=== PATIENT | male | born 1980 | race Caucasian/White ===

== ENCOUNTER 2016-06-20 15:44 | Emergency (ER) | payer SELFPAY ==
[~2016-06-20] VITALS: Ht 177.8 cm; Wt 90.7 kg
[~2016-06-20 15:44] MED LIST: DCS100C PO; HYDR1CAP2 PO; NAPR-243 PO; PENI500T PO
--- OUTSIDE RECORDS SUMMARY | 2016-06-20 15:49 | XMS REPORT | Continuity of Care Document ---
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 Role Phone NO, LOCAL PHYSICIAN PCP Unavailable Insurance Providers Payer Name Policy Number Subscriber Name Relationship Self Pay Jose Preciado 18 Self / Same As Patient Advance Directives Directive Response Recorded Date/Time Advance Directives No 11/23/14 11:48am Resuscitation Status Full Code 11/23/14 11:48am Problems Medical Problems Problem Onset Date Status Low back pain Unknown Active Hematochezia Unknown Active Medications Medication Dose Route Sig Days/Qty Instructions Order Date Discontinued Date Status Acetaminophen/Hydrocodone Bitart (Lorcet-Hd) 2 Each PO Q6HR PRN 20 Qty 10 12/28/12 Discontinued Penicillin V Potassium 1 Tab PO THREE TIMES A DAY 30 Qty 01/10/1009/06 Discontinued Naproxen 1 Each PO TWICE A DAY PRN PAIN 20 Qty FOR PAIN 11/23/14 Active Docusate Sodium 100 Mg PO TWICE A DAY 10 Qty 11/23/14 Active Social History Social History Problem Response Recorded Date/Time Alcohol Use Occasionally Uses 11/23/2014 11:48am Recreational Drug Use No 11/23/2014 11:48am Recent Foreign Travel No 11/23/2014 11:46am Recent Infectious Disease Exposure No 11/23/2014 11:46am Smoking Status Former Smoker 11/23/2014 11:48am Query Response Start Date Stop Date Smoking Status Former Smoker Hospital Discharge Instructions No hospital discharge instructions. Plan of Care No plan of care. Functional Status No functional status results. Allergies, Adverse Reactions, Alerts Allergen Type Severity Reaction Status Last Updated No Known Drug Allergies Active 01/10/10 Immunizations No immunization records. Vital Signs Acute Vital Signs Vital Response Date/Time Temperature (Fahrenheit) 97.6 degrees F (97.6 - 99.5) Temperature (Calculated Celsius) 36.18474 degrees C (36.4 - 37.5) Temperature Source Temporal Pulse Rate (adult) 72 bpm (60 - 90) Respiratory Rate 16 bpm (12 - 24) O2 Sat by Pulse Oximetry 97 % (88 - 100) Blood Pressure 142/78 mm Hg Pain Pain Intensity 5 Height (Feet) 5 feet Height (Inches) 10 inches Height (Calculated Centimeters) 177.219955 cm Weight (Pounds) 185 pounds Weight (Calculated Grams) 57315.666 gm Weight (Calculated Kilograms) 83.328737 kilograms Calculated BMI 26.54 Results Laboratory Results Test Name Result Units Flags Reference Collection Date/Time Result Date/ Time Comments White Blood Count 7.4 10^3/uL 4.3-11.0 11/23/2014 12:20pm 11/23/2014 12 :28pm Red Blood Count 4.64 10^6/uL 4.35-5.85 11/23/2014 12:pm 11/23/2014 12 :28pm Hemoglobin 14.6 G/DL 13.3-17.7 11/23/2014 12:pm 11/23/2014 12:28pm Hematocrit 42 % 40-54 11/23/2014 12:11/23/2014 12:28pm Mean Corpuscular Volume 91 FL 80-99 11/23/2014 12:11/23/2014 12: 28pm Mean Corpuscular Hemoglobin 32 PG 25-34 11/23/2014 12:pm 11/23/2014 12:28pm Mean Corpuscular Hemoglobin Concent 34 G/DL 32-36 11/23/2014 12:pm 12:28pm Red Cell Distribution Width 12.4 % 10.0-14.5 11/23/2014 12:20pm 2014 12:28pm Platelet Count 243 10^3/uL 130-400 11/23/2014 12:20pm 11/23/2014 12: 28pm Mean Platelet Volume 10.8 FL H 7.4-10.4 11/23/2014 12:20pm 11/23/2014 12: 28pm Neutrophils (%) (Auto) 64 % 42-75 11/23/2014 12:20pm 11/23/2014 12: 28pm Lymphocytes (%) (Auto) 24 % 12-44 11/23/2014 12:20pm 11/23/2014 12: 28pm Monocytes (%) (Auto) 9 % 0-12 11/23/2014 12:20pm 11/23/2014 12:28pm Eosinophils (%) (Auto) 3 % 0-10 11/23/2014 12:20pm 11/23/2014 12:28pm Basophils (%) (Auto) 0 % 0-10 11/23/2014 12:20pm 11/23/2014 12:28pm Neutrophils # (Auto) 4.7 X 10^3 1.8-7.8 11/23/2014 12:20pm 11/23/2014 12:28pm Lymphocytes # (Auto) 1.8 X 10^3 1.0-4.0 11/23/2014 12:20pm 11/23/2014 12:28pm Monocytes # (Auto) 0.7 X 10^3 0.0-1.0 11/23/2014 12:20pm 11/23/2014 12: 28pm Eosinophils # (Auto) 0.2 10^3/uL 0.0-0.3 11/23/2014 12:20pm 11/23/2014 12:28pm Basophils # (Auto) 0.0 10^3/uL 0.0-0.1 11/23/2014 12:20pm 11/23/2014 12 :28pm Erythrocyte Sedimentation Rate 4 MM/HR 0-15 11/23/2014 12:20pm 2014 1:09pm Urine Color YELLOW 11/23/2014 12:40pm 11/23/2014 1:08pm Urine Clarity CLEAR 11/23/2014 12:40pm 11/23/2014 1:08pm Urine pH 5 5-9 11/23/2014 12:40pm 11/23/2014 1:08pm Urine Specific Allen 1.020 1.016-1.022 11/23/2014 12:40pm 2014 1:08pm Urine Protein NEGATIVE NEGATIVE 11/23/2014 12:40pm 11/23/2014 1:08pm Urine Glucose (UA) NEGATIVE NEGATIVE 11/23/2014 12:40pm 11/23/2014 1: 08pm Urine RBC (Auto) 3+ * NEGATIVE 11/23/2014 12:40pm 11/23/2014 1:08pm Urine Ketones NEGATIVE NEGATIVE 11/23/2014 12:40pm 11/23/2014 1:08pm Urine Nitrite NEGATIVE NEGATIVE 11/23/2014 12:40pm 11/23/2014 1:08pm Urine Bilirubin NEGATIVE NEGATIVE 11/23/2014 12:40pm 11/23/2014 1: 08pm Urine Urobilinogen NORMAL MG/DL NORMAL 11/23/2014 12:40pm 11/23/2014 1: 08pm Urine Leukocyte Esterase NEGATIVE NEGATIVE 11/23/2014 12:40pm 2014 1:08pm Urine RBC 5-10 /HPF * 11/23/2014 12:40pm 11/23/2014 1:08pm Urine WBC NONE /HPF 11/23/2014 12:40pm 11/23/2014 1:08pm Urine Bacteria TRACE /HPF 11/23/2014 12:40pm 11/23/2014 1:08pm Urine Squamous Epithelial Cells NONE /HPF 11/23/2014 12:40pm 2014 1:08pm Urine Crystals NONE /LPF 11/23/2014 12:40pm 11/23/2014 1:08pm Urine Casts NONE /LPF 11/23/2014 12:40pm 11/23/2014 1:08pm Urine Mucus SMALL /LPF * 11/23/2014 12:40pm 11/23/2014 1:08pm Urine Other FEW SPERM /HPF * 11/23/2014 12:40pm 11/23/2014 1:08pm Urine Culture Indicated NO 11/23/2014 12:40pm 11/23/2014 1:08pm Sodium Level 143 MMOL/L 135-145 11/23/2014 12:20pm 11/23/2014 12:52pm Potassium Level 3.8 MMOL/L 3.6-5.0 11/23/2014 12:20pm 11/23/2014 12: 52pm Chloride Level 109 MMOL/L H 98-107 11/23/2014 12:20pm 11/23/2014 12:52pm Carbon Dioxide Level 26 MMOL/L 21-32 11/23/2014 12:20pm 11/23/2014 12: 52pm Blood Urea Nitrogen 11 MG/DL 7-18 11/23/2014 12:pm 11/23/2014 12: 52pm Creatinine 1.02 MG/DL 0.60-1.30 11/23/2014 12:20pm 11/23/2014 12:52pm BUN/Creatinine Ratio 11 11/23/2014 12:20pm 11/23/2014 12:52pm Estimat Glomerular Filtration Rate > 60 11/23/2014 12:2014 12:52pm GFR INTERPRETIVE DATA UNITS FOR ESTIMATED GFR (eGFR): mL/min/1.73 M2 REFERENCE RANGE FOR ESTIMATED GFR (eGFR) eGFR NORMAL eGFR >60 MODERATELY DECREASED eGFR 30-59 SEVERLY DECREASED eGFR 15-29 KIDNEY FAILURE <15 (OR DIALYSIS) Glucose Level 81 MG/DL 70-105 11/23/2014 12:20pm 11/23/2014 12:52pm Calcium Level 9.4 MG/DL 8.5-10.1 11/23/2014 12:11/23/2014 12:52pm Total Bilirubin 0.3 MG/DL 0.1-1.0 11/23/2014 12:pm 11/23/2014 12: 52pm Alkaline Phosphatase 68 U/L 40-136 11/23/2014 12:pm 11/23/2014 12: 52pm Aspartate Amino Transf (AST/SGOT) 14 U/L 5-34 11/23/2014 12:pm 2014 12:52pm Alanine Aminotransferase (ALT/SGPT) 18 U/L 0-55 11/23/2014 12: 12:52pm Total Protein 7.1 G/DL 6.4-8.2 11/23/2014 12:11/23/2014 12:52pm Albumin 4.2 G/DL 3.2-4.5 11/23/2014 12:pm 11/23/2014 12:52pm Procedures No known history of procedures. Encounters Encounter Location Date/Time Departed Emergency Room [facility] 11/23/14 11:27am Recent Diagnosis
[2016-06-20] MEDS ORDERED: RX-NITROGLYCERIN 0.4 MG TAB BTL 25'S SL ONE (16:26)
[2016-06-20] MEDS ORDERED: ASPIRIN 81 MG CHEW (CHILDREN'S ASA) PO ONE (16:30)
[2016-06-20] MEDS ORDERED: NITROGLYCERIN SUBLINGUAL 0.4 MG TAB (NITROSTAT) SL PRN (16:30)
[2016-06-20 16:35] LABS: BASOPHILS % (AUTO) 0 % (0-10); EOSINOPHILS # (AUTO) 0.1 10^3/uL (0.0-0.3); EOSINOPHILS % (AUTO) 1 % (0-10); LYMPHOCYTES # (AUTO) 2.1 X 10^3 (1.0-4.0); LYMPHOCYTES % (AUTO) 17 % (12-44); MEAN CORPUSCULAR HEMOGLOBIN 32 PG (25-34); MEAN CORPUSCULAR HGB CONC 35 G/DL (32-36); MEAN CORPUSCULAR VOLUME 89 FL (80-99); MEAN PLATELET VOLUME 10.9 FL (7.4-10.4); MONOCYTES # (AUTO) 0.9 X 10^3 (0.0-1.0); MONOCYTES % (AUTO) 8 % (0-12); NEUTROPHILS # (AUTO) 8.7 X 10^3 (1.8-7.8); NEUTROPHILS % (AUTO) 74 % (42-75); PLATELET COUNT 249 10^3/uL (130-400); RED CELL DISTRIBUTION WIDTH 12.2 % (10.0-14.5); WHITE BLOOD COUNT 11.8 10^3/uL (4.3-11.0)
--- NOTE | 2016-06-20 16:36 | Diagnostic Imaging Report ---
EXAM: CHEST PA/LAT (2 VIEW) INDICATION: Dyspnea. COMPARISON: None. FINDINGS: Normal heart size and pulmonary vascularity. No focal pulmonary opacity, pleural effusion or pneumothorax. Degenerative changes in the spine. IMPRESSION: No acute cardiopulmonary findings. Dictated by: Dictated on workstation # [id number]
--- NOTE | 2016-06-20 16:37 | ED Cardiac General ---
History of Present Illness General Chief Complaint: General Problems/Pain Stated Complaint: SOA,DIZZINESS Nursing Triage Note: PT C/O DYSPNEA SINCE 0200 THIS AM. HE STATES THIS SAME THING HAPPENED 3 DAYS AGO BUT WENT AWAY ON ITS OWN. HE DENIES HAVING COUGH/CONGESTION/FEVER OR PALPITATIONS, BUT DOES C/O BEING "WOOZY". Source: patient History of Present Illness Time seen by provider: 16:06 Initial Comments PT STATES HE WOKE UP THIS AM AT 0200 WITH SHORTNESS OF BREATH, WAS UP FOR 30 MINUTES WITH IT AND ABLE TO GET BACK TO ASLEEP, BUT THEN IT WOKE HIM UP AGAIN AT 0400 AND HAS PERSISTED. ALSO HAS CHEST DISCOMFORT--TIGHTNESS/HEAVINESS--RATES 4-5/10 SYMPTOMS WORSE WITH EXERTION AND WITH LAYING FLAT IMPROVED WITH SITTING UP HAS BEEN SLIGHTLY DIZZY AND NAUSEATED NO SWEATS NO PALPITATIONS NO SWELLING IN LEGS/ FEET OR PAIN IN CALVES. NO RECENT TRAVEL/PROLONGED SITTING NO COUGH/CONGESTION, FEVER OR RECENT ILLNESS PCP: NONE Allergies and Home Medications Allergies Coded Allergies: No Known Drug Allergies (Unverified , 01/10/10) Home Medications Docusate Sodium 100 Mg Cap #10 100 MG PO BID Prescribed by: SYDNEY CHAMBERLAIN on 11/23/14 1323 Naproxen 500 Mg Tablet #20 1 EACH PO BID PRN PRN PAIN FOR PAIN Prescribed by: SYDNEY CHAMBERLAIN on 11/23/14 1323 Review of Systems Constitutional: no symptoms reported EENTM: No Symptoms Reported Respiratory: See HPI Orthopnea SOA With ExertionDenies Wheezing Cardiovascular: See HPI Chest PainDenies Edema, Denies Irregular Heart Rate, LightheadednessDenies Palpitations, Denies Syncope Gastrointestinal: See HPIDenies Abdominal Pain, NauseaDenies Vomiting Genitourinary: No Symptoms Reported Musculoskeletal: no symptoms reported Skin: no symptoms reported Psychiatric/Neurological: No Symptoms Reported Endocrine: No Symptoms Reported Hematologic/Lymphatic: No Symptoms Reported Past Swmfawo-Ldlxoo-Tvqhty Hx Patient Social History Alcohol Use: Occasionally Uses Recreational Drug Use: No (EXPERIMENTED TEEN) Smoking Status: Current Everyday Smoker (1 PPD, NOW VAPE CIGARETTES) Type Used: Cigarettes, Electronic/Vapor Recent Foreign Travel: No Contact w/Someone Who Travel: No Recent Infectious Disease Expo: No Recent Hopitalizations: No Physical Abuse Screen: No Sexual Abuse: No Seasonal Allergies Seasonal Allergies: No Surgeries HX Surgeries: Yes (CORRECTION OF TESTICULAR TORSION) Surgeries: Testicular Respiratory Hx Respiratory Disorders: No Cardiovascular Hx Cardiac Disorders: No Neurological Hx Neurological Disorders: No Genitourinary Hx Genitourinary Disorders: Yes (TESTICULAR TORSION CORRECTED) Gastrointestinal Hx Gastrointestinal Disorders: No Musculoskeletal Hx Musculoskeletal Disorders: No Endocrine Hx Endocrine Disorders: No HEENT HX ENT Disorders: No Cancer Hx Cancer: No Psychosocial Hx Psychiatric Problems: No Integumentary HX Skin/Integumentary Disorder: No Blood Transfusions Hx Blood Disorders: No Physical Exam Vital Signs Vital Sign - Last 12Hours 06/20/16 15:54 Temp 98.7 Pulse 81 Resp 18 B/P 159/91 Pulse Ox 98 O2 Delivery Room Air Capillary Refill : Less Than 3 Seconds General Appearance: No Apparent Distress WD/WN Other (DOES NOT APPEAR TO BE IN ANY DISCOMFORT OR DYSPNEA ) HEENT: PERRL/EOMI Neck: Full Range of Motion Normal Inspection Non Tender SuppleNo Carotid Bruit , No JVD Respiratory: Chest Non Tender Normal Breath Sounds No Accessory Muscle Use No Respiratory Distress Cardiovascular: Regular Rate, Rhythm No Edema No JVD No Murmur Normal Peripheral Pulses Gastrointestinal: Normal Bowel Sounds No Organomegaly No Pulsatile Mass Non Tender Soft Extremity: Normal Capillary Refill Normal Inspection Normal Range of Motion Non Tender No Calf Tenderness No Pedal Edema Neurologic/Psychiatric: Alert Oriented x3 No Motor/Sensory Deficits Normal Mood/Affect grape pruner II-XII Norm as Tested Skin: Normal Color Warm/Dry Progress/Results/Core Measures Results/Orders Lab Results Laboratory Tests Test 06/20/16 16:01 Range/Units Activated Partial Thromboplast Time 31 24-35 SEC Alanine Aminotransferase (ALT/SGPT) 19 0-55 U/L Albumin 4.2 3.2-4.5 G/DL Alkaline Phosphatase 70 40-136 U/L Anion Gap 9 5-14 MMOL/L Aspartate Amino Transf (AST/SGOT) 14 5-34 U/L B-Type Natriuretic Peptide < 10.0 <100.0 PG/ML BUN/Creatinine Ratio 12 Basophils # (Auto) 0.0 0.0-0.1 10^3/uL Basophils (%) (Auto) 0 0-10 % Blood Urea Nitrogen 12 7-18 MG/DL Calcium Level 9.0 8.5-10.1 MG/DL Carbon Dioxide Level 22 21-32 MMOL/L Chloride Level 107 98-107 MMOL/L Creatine Kinase MB 1.6 <6.6 NG/ML Creatinine 1.00 0.60-1.30 MG/DL D-Dimer < 0.27 0.00-0.49 UG/ML Eosinophils # (Auto) 0.1 0.0-0.3 10^3/uL Eosinophils (%) (Auto) 1 0-10 % Estimat Glomerular Filtration Rate > 60 Glucose Level 99 70-105 MG/DL Hematocrit 42 40-54 % Hemoglobin 14.8 13.3-17.7 G/DL INR Comment 1.0 0.8-1.4 Lymphocytes # (Auto) 2.1 1.0-4.0 X 10^3 Lymphocytes (%) (Auto) 17 12-44 % Magnesium Level 2.1 1.8-2.4 MG/DL Mean Corpuscular Hemoglobin 32 25-34 PG Mean Corpuscular Hemoglobin Concent 35 32-36 G/DL Mean Corpuscular Volume 89 80-99 FL Mean Platelet Volume 10.9 H 7.4-10.4 FL Monocytes # (Auto) 0.9 0.0-1.0 X 10^3 Monocytes (%) (Auto) 8 0-12 % Neutrophils # (Auto) 8.7 H 1.8-7.8 X 10^3 Neutrophils (%) (Auto) 74 42-75 % Platelet Count 249 130-400 10^3/uL Potassium Level 3.9 3.6-5.0 MMOL/L Prothrombin Time 13.0 12.2-14.7 SEC Red Blood Count 4.70 4.35-5.85 10^6/uL Red Cell Distribution Width 12.2 10.0-14.5 % Sodium Level 138 135-145 MMOL/L TSH [place] Testing 1.30 0.35-4.94 UIU/ML Total Bilirubin 0.2 0.1-1.0 MG/DL Total Creatine Kinase 134 30-200 U/L Total Protein 7.0 6.4-8.2 G/DL Troponin I < 0.30 <0.30 NG/ML White Blood Count 11.8 H 4.3-11.0 10^3/uL My Orders Orders-SUKUMAR DURÁN DO Saline Lock/Iv-Start (06/20/16 16:10) Ekg Tracing (06/20/16 16:10) Monitor-Rhythm Ecg Trace Only (06/20/16 16:10) BNP (06/20/16 16:10) Cbc With Automated Diff (06/20/16 16:10) Comprehensive Metabolic Panel (06/20/16 16:10) Creatine Kinase (06/20/16 16:10) Creatine Kinase Mb (06/20/16 16:10) Magnesium (06/20/16 16:10) Protime With Inr (06/20/16 16:10) Partial Thromboplastin Time (06/20/16 16:10) Thyroid Analyzer (06/20/16 16:10) Troponin I (06/20/16 16:10) Chest Pa/Lat (2 View) (06/20/16 16:10) Aspirin Chewable Tablet (Baby Aspirin Ch (06/20/16 16:30) Nitroglycerin Sublingual (Nitrostat Sub (06/20/16 16:30) Fibrin Degradation Products (06/20/16 16:19) Rx-Nitroglycerin Sl Tabs (Rx-Nitrostat S (06/20/16 16:26) Ct Angio Chest W (06/20/16 17:11) Iohexol Injection (Omnipaque 350 Mg/Ml 1 (06/20/16 17:15) Ns (Ivpb) (Sodium Chloride 0.9% Ivpb Bag (06/20/16 17:15) Medications Given in ED Current Medications Medications Dose Ordered Sig/Jaycob Route Start Time Stop Time Status Last Admin Dose Admin Aspirin 324 mg ONCE ONCE PO 06/20/16 16:30 06/20/16 16:31 DC 06/20/16 16:36 324 MG Iohexol 150 ml ONCE ONCE IV 06/20/16 17:15 06/20/16 17:16 DC 06/20/16 17:26 125 ML Nitroglycerin 0.4 mg STK-MED ONCE SL 06/20/16 16:26 06/20/16 16:34 DC 06/20/16 16:36 0.4 MG Sodium Chloride 100 ml ONCE ONCE IV 06/20/16 17:15 06/20/16 17:16 DC 06/20/16 17:26 80 ML Vital Signs/I&O Vital Sign - Last 12Hours 06/20/16 15:54 Temp 98.7 Pulse 81 Resp 18 B/P 159/91 Pulse Ox 98 O2 Delivery Room Air Blood Pressure Mean: 113 Progress Note : Progress Note NO OBJECTIVE EVIDENCE OF DYSPNEA OR DISCOMFORT DURING ER STAY ECG Initial ECG Impression Time: 16:15 Initial ECG Rate: 77 Initial ECG Rhythm: Normal Sinus Initial ECG Impression: Normal Initial ECG Comparisson: No Previous ECG Available Diagnostic Imaging Comments CXR--NO ACUTE PROCESS, PER RADIOLOGIST REPORT @ 1648 CT CHEST ANGIOGRAM--NO ACUTE PROCESS, PER RADIOLOGIST REPORT @ 1752 Reviewed: Reviewed by Me Departure Impression Impression: Primary Impression: SUBJECTIVE DYSPNEA Disposition: 01 HOME, SELF-CARE Condition: Stable Departure-Patient Inst. Referrals: NO,LOCAL PHYSICIAN (PCP/Family) Primary Care Physician Patient Instructions: Shortness of Breath (Dyspnea) (DC) Add. Discharge Instructions: FOLLOW UP WITH DR. OF CHOICE THIS WEEK FOR FURTHER CARE RETURN TO ER IF SYMPTOMS WORSEN All discharge instructions reviewed with patient and/or family. Voiced understanding. SUKUMAR DURÁN DO Jun 20, 2016 16:37
[2016-06-20 16:54] LABS: ALANINE AMINOTRANSFERASE 19 U/L (0-55); ALBUMIN 4.2 G/DL (3.2-4.5); ANION GAP 9 MMOL/L (5-14); ASPARTATE AMINO TRANSFERASE 14 U/L (5-34); BILIRUBIN,TOTAL 0.2 MG/DL (0.1-1.0); BLOOD UREA NITROGEN 12 MG/DL (7-18); BUN/CREATININE RATIO 12; CARBON DIOXIDE 22 MMOL/L (21-32); CHLORIDE 107 MMOL/L (98-107); CREATINE KINASE 134 U/L (30-200); GFR ESTIMATED > 60; GLUCOSE 99 MG/DL (70-105); MAGNESIUM 2.1 MG/DL (1.8-2.4); POTASSIUM 3.9 MMOL/L (3.6-5.0); SODIUM 138 MMOL/L (135-145)
[2016-06-20 17:04] LABS: PARTIAL THROMBOPLASTIN TIME 31 SEC (24-35)
[2016-06-20 17:13] LABS: TROPONIN I < 0.30 NG/ML (<0.30)
[2016-06-20] MEDS ORDERED: NS 100 ML (IVPB) BAG IV ONE (17:15)
[2016-06-20] MEDS ORDERED: IOHEXOL 350 MG/ML 150 ML (OMNIPAQUE 350) VIAL IV ONE (17:15)
--- NOTE | 2016-06-20 17:48 | Diagnostic Imaging Report ---
INDICATION: Shortness of breath and fullness in chest. TECHNIQUE: CTA chest obtained with axial slices with IV contrast bolus and MIP reconstructions. FINDINGS: The pulmonary parenchymal vessels appear well opacified with no CT evidence of pulmonary emboli. There is no evidence of aortic dissection or aneurysm. Great vessel origins appear unremarkable. There is no mediastinal or hilar adenopathy. There is no axillary adenopathy. There is no pleural or pericardial fluid. Visualized portions of the upper abdomen were unremarkable. Lung parenchymal windows demonstrate some motion artifact but no evidence of infiltrate or mass. There is some mild dependent atelectatic change in both lung bases. IMPRESSION: Essentially negative CTA of the chest. No evidence of pulmonary emboli or aortic dissection. Mild dependent atelectatic changes in both lung bases. No pleural fluid or consolidation. Dictated by: Dictated on workstation # [id number]
[2016-06-20 18:02] VITALS: BP 119/87
== END 2016-06-20 18:03 | disposition home or self-care (01) ==
LOC: EDUNIT# 15:44 → ER 15:46
DX: R06.00 Dyspnea, unspecified (principal); R05 Cough; R42 Dizziness and giddiness; F17.210 Nicotine dependence, cigarettes, uncomplicated
CPT/HCPCS: 36415; 71020; 71275; 80053; 82550; 82553; 83735; 83880; 84443; 84484; 85025; 85379; 85610; 85730; 93005; 93041

== ENCOUNTER 2021-09-03 04:13 | Observation (INO) | payer BC ==
[~2021-09-03] VITALS: Ht 177.8 cm; Wt 81.6 kg
[2021-09-03] MEDS ORDERED: ASPIRIN 81 MG CHEW (CHILDREN'S ASA) PO ONE (04:30)
[2021-09-03] MEDS ORDERED: NITROGLYCERIN 0.4 MG SL TABS BTL 25'S SL PRN (04:30)
[2021-09-03 04:36] LABS: BASOPHILS # (AUTO) 0.1 10^3/uL (0.0-0.1); BASOPHILS % (AUTO) 1 % (0-10); EOSINOPHILS # (AUTO) 0.4 10^3/uL (0.0-0.3); EOSINOPHILS % (AUTO) 3 % (0-10); HEMATOCRIT 43 % (40-54); HEMOGLOBIN 14.6 g/dL (13.3-17.7); LYMPHOCYTES # (AUTO) 3.7 10^3/uL (1.0-4.0); LYMPHOCYTES % (AUTO) 23 % (12-44); MEAN CORPUSCULAR HEMOGLOBIN 32 pg (25-34); MEAN CORPUSCULAR HGB CONC 34 g/dL (32-36); MEAN CORPUSCULAR VOLUME 93 fL (80-99); MEAN PLATELET VOLUME 10.5 fL (9.0-12.2); MONOCYTES # (AUTO) 1.2 10^3/uL (0.0-1.0); MONOCYTES % (AUTO) 7 % (0-12); NEUTROPHILS # (AUTO) 10.6 10^3/uL (1.8-7.8); NEUTROPHILS % (AUTO) 66 % (42-75); PLATELET COUNT 291 10^3/uL (130-400)
--- NOTE | 2021-09-03 04:38 | ED Chest Pain ---
General Chief Complaint: Chest Pain Stated Complaint: CHEST PAIN;TROUBLE BREATHING Nursing Triage Note: Pt arrives via POV from home for c/o non-radiating midline chest pain; onset 0900 09/02/21. Pt denies cardiac hx, states pain increases when taking a deep breath. Source: patient History of Present Illness Date Seen by Provider: Sep 03, 2021 Time Seen by Provider: 04:25 Initial Comments PT ARRIVES VIA POV FROM HOME C/O MID CHEST PAIN THAT WOKE HIM UP AT 0900 THIS MORNING PAIN HAS PROGRESSIVELY GOTTEN WORSE ALL DAY, AND TRIED TO SLEEP TONIGHT AND IT WOKE HIM UP AGAIN JUST PRIOR TO ARRIVAL RATES PAIN 8-02/03 NO RADIATION OF PAIN PAIN IS WORSE WITH ACTIVITY, MOVEMENT AND BREATHING + SHORTNESS OF BREATH AND PAIN WITH BREATHING + SWEATS EARLIER TODAY AND AGAIN NOW + NAUSEA, NO VOMITING NO SWELLING IN LEGS/ FEET OR PAIN IN CALVES NO FEVER OR RECENT ILLNESS, NO COUGH OR URI SYMPTOMS TOOK TYLENOL WITHOUT RELIEF NO HISTORY OF SIMILAR PT SMOKED 1 PPD, NOW VAPES NICOTINE PT'S FATHER HAD MA AT AGE 42 AND HIS BROTHERS HAD MA'S AT 46 AND 47. PT HAS NOT SEEN A DR IN MANY YEARS PT HAS NOT HAD COVID-19 VACCINE PCP: NONE Allergies and Home Medications Allergies Coded Allergies: No Known Drug Allergies (Unverified , 01/10/10) Patient Home Medication List Home Medication List Reviewed: Yes Docusate Sodium (Colace) 100 Mg Cap, 100 MG PO BID Prescribed by: SYDNEY CHAMBERLAIN on 11/23/14 1323 Naproxen (Naprosyn) 500 Mg Tablet, 1 EACH PO BID PRN for PAIN Prescribed by: SYDNEY CHAMBERLAIN on 11/23/14 1323 Review of Systems Review of Systems Constitutional: see HPI, diaphoresis EENTM: No Symptoms Reported Respiratory: See HPI; Denies Cough; Shortness of Air Cardiovascular: See HPI, Chest Pain; Denies Edema, Denies Irregular Heart Rate, Denies Lightheadedness, Denies Palpitations, Denies Syncope Gastrointestinal: See HPI; Denies Abdominal Pain; Nausea; Denies Vomiting Genitourinary: No Symptoms Reported Musculoskeletal: no symptoms reported Skin: no symptoms reported Psychiatric/Neurological: No Symptoms Reported Endocrine: No Symptoms Reported Hematologic/Lymphatic: No Symptoms Reported Past Sqgjgfc-Slusrq-Pgzltf Hx Patient Social History Tobacco Use?: Yes (SMOKED 1PPD, NOW VAPES) Tobacco type used: Cigarettes Smoking Status: Former Smoker Use of E-Cig and/or Vaping dev: Yes E-Cig or Vaping type used: Nicotine Use of E-Cig and/or Vaping Aakash: Current Everyday User Substance use?: No Additional substance use comme: EXPERIMENTED A TEEN Alcohol Use?: Yes Alcohol Frequency: Once in a while Seasonal Allergies Seasonal Allergies: No Past Medical History Surgeries: Yes (CORRECTION OF TESTICULAR TORSION) Testicular Respiratory: No Cardiac: No Neurological: No Genitourinary: Yes (TESTICULAR TORSION WITH CORRECTIVE SURGERY) Gastrointestinal: No Musculoskeletal: No Endocrine: No HEENT: No Cancer: No Psychosocial: No Integumentary: No Blood Disorders: No Physical Exam Vital Signs Vital Signs - First Documented Capillary Refill : Less Than 3 Seconds Height, Weight, BMI Height: 5'10" Weight: 200lbs. oz. 90.833138jk; 25.00 BMI Method:Stated General Appearance: No Apparent Distress, WD/WN, Other (SOMEWHAT LETHARGIC, LOOKS UNCOMFORTABLE, PALE AND MILDY DIAPHORETIC) Neck: Normal Inspection Respiratory: Chest Non Tender, Normal Breath Sounds, No Accessory Muscle Use, No Respiratory Distress Cardiovascular: Regular Rate, Rhythm, No Edema, No JVD, No Murmur, Normal Peripheral Pulses Gastrointestinal: Non Tender, Soft Extremity: Normal Capillary Refill, Normal Inspection, Normal Range of Motion, Non Tender, No Calf Tenderness, No Pedal Edema Neurologic/Psychiatric: Alert, Oriented x3, No Motor/Sensory Deficits, environmental engineer II- XII Norm as Tested Skin: Diaphoresis, Pallor Progress/Results/Core Measures Results/Orders Lab Results Laboratory Tests Test 09/03/21 04:25 Range/Units White Blood Count 16.0 H 4.3-11.0 10^3/uL Red Blood Count 4.60 4.30-5.52 10^6/uL Hemoglobin 14.6 13.3-17.7 g/dL Hematocrit 43 40-54 % Mean Corpuscular Volume 93 80-99 fL Mean Corpuscular Hemoglobin 32 25-34 pg Mean Corpuscular Hemoglobin Concent 34 32-36 g/dL Red Cell Distribution Width 11.9 10.0-14.5 % Platelet Count 291 130-400 10^3/uL Mean Platelet Volume 10.5 9.0-12.2 fL Immature Granulocyte % (Auto) 0 % Neutrophils (%) (Auto) 66 42-75 % Lymphocytes (%) (Auto) 23 12-44 % Monocytes (%) (Auto) 7 0-12 % Eosinophils (%) (Auto) 3 0-10 % Basophils (%) (Auto) 1 0-10 % Neutrophils # (Auto) 10.6 H 1.8-7.8 10^3/uL Lymphocytes # (Auto) 3.7 1.0-4.0 10^3/uL Monocytes # (Auto) 1.2 H 0.0-1.0 10^3/uL Eosinophils # (Auto) 0.4 H 0.0-0.3 10^3/uL Basophils # (Auto) 0.1 0.0-0.1 10^3/uL Immature Granulocyte # (Auto) 0.1 0.0-0.1 10^3/uL Sodium Level 139 135-145 MMOL/L Potassium Level 3.6 3.6-5.0 MMOL/L Chloride Level 103 98-107 MMOL/L Carbon Dioxide Level 22 21-32 MMOL/L Anion Gap 14 5-14 MMOL/L Blood Urea Nitrogen 13 7-18 MG/DL Creatinine 1.02 0.60-1.30 MG/DL Estimat Glomerular Filtration Rate 95 BUN/Creatinine Ratio 13 Glucose Level 125 H 70-105 MG/DL Calcium Level 8.9 8.5-10.1 MG/DL Corrected Calcium 8.8 8.5-10.1 MG/DL Magnesium Level 1.8 1.6-2.4 MG/DL Total Bilirubin 0.3 0.1-1.0 MG/DL Aspartate Amino Transf (AST/SGOT) 16 5-34 U/L Alanine Aminotransferase (ALT/SGPT) 15 0-55 U/L Alkaline Phosphatase 69 40-136 U/L Total Creatine Kinase 121 30-200 U/L Creatine Kinase MB 1.5 <6.6 NG/ML Myoglobin 33.4 10.0-92.0 NG/ML Troponin I < 0.028 <0.028 NG/ML Total Protein 7.0 6.4-8.2 GM/DL Albumin 4.1 3.2-4.5 GM/DL Amylase Level 61 25-125 U/L Lipase 17 8-78 U/L My Toby Luis - SUKUMAR DURÁN DO Cbc With Automated Diff (09/03/21 04:25) Magnesium (09/03/21 04:25) Chest 1 View, Ap/Pa Only (09/03/21 04:25) Ekg Tracing (09/03/21 04:25) Comprehensive Metabolic Panel (09/03/21 04:25) Myoglobin Serum (09/03/21 04:25) Protime With Inr (09/03/21 04:25) Partial Thromboplastin Time (09/03/21 04:25) O2 (09/03/21 04:25) Monitor-Rhythm Ecg Trace Only (09/03/21 04:25) Ed Iv/Invasive Line Start (09/03/21 04:25) Creatine Kinase (09/03/21 04:25) Creatine Kinase Mb (09/03/21 04:25) Lipase (09/03/21 04:25) Amylase (09/03/21 04:25) Bnp Douglas (09/03/21 04:25) Nitroglycerin 0.4 Mg Btl 25's (Nitrostat (09/03/21 04:30) Aspirin Chewable Tablet (Baby Aspirin Ch (09/03/21 04:30) Fibrin Degradation Products (09/03/21 04:25) Troponin I Douglas (09/03/21 04:25) Ed Iv/Invasive Line Start (09/03/21 04:33) Ns Iv 1000 Ml (Sodium Chloride 0.9%) (09/03/21 04:45) Manual Differential (09/03/21 04:25) Covid 19 Inhouse Test (09/03/21 04:49) Influenza A And B By Pcr (09/03/21 04:49) Isolation Central Supply Req (09/03/21 04:49) Medications Given in ED Current Medications Medications Dose Ordered Sig/Jaycob Route Start Time Stop Time Status Last Admin Dose Admin Aspirin 324 mg ONCE ONCE PO 09/03/21 04:30 09/03/21 04:31 DC 09/03/21 04:39 324 MG Nitroglycerin 0.4 mg UD PRN SL 09/03/21 04:30 09/03/21 04:39 0.4 MG Vital Signs/I&O 09/03/21 09/03/21 04:19 04:19 Temp 36.8 Pulse 84 Resp 18 B/P (MAP) 133/93 (106) Pulse Ox 97 97 O2 Delivery Room Air Room Air Blood Pressure Mean: 106 Progress Progress Note : Progress Note GIVEN ASPIRIN AND NTG X 1--NO SIGNIFICANT RELIEF NO DETERIORATION IN PT'S CONDITION DURING ER STAY Initial ECG Impression Date: Sep 03, 2021 Initial ECG Impression Time: 04:23 Initial ECG Rate: 87 Initial ECG Rhythm: Normal Sinus Initial ECG Impression: Acute MA Comment ST ELEVATION ANTERIOR AND LATERALLY Diagnostic Imaging Comments CXR--NO ACUTE PROCESS, PENDING RADIOLOGIST REVIEW Reviewed: Reviewed by Me Departure Communication (Admissions) 0426--SPOKE WITH TABLET REPAIR, TESTING EKG TO DR. GA 0430--SPOKE WITH DR. GA. HE ADVISES TO CALL IN TESTER ARMATURE OR FIELDS TEAM. TABLET REPAIR NOTIFIED. 0503--DR. GA HERE TO SEE PT. 0515--TESTER ARMATURE OR FIELDS TEAM HAVE TAKEN THE PT TO TESTER ARMATURE OR FIELDS. Impression Primary Impression: STEMI (ST elevation myocardial infarction) Disposition: 09 ADMITTED INPATIENT (TO TESTER ARMATURE OR FIELDS) Condition: Stable Admissions Decision to Admit Reason: Admit from ER (General) (TO TESTER ARMATURE OR FIELDS) Decision to Admit/Date: Sep 03, 2021 Time/Decision to Admit Time: 04:30 Departure-Patient Inst. Referrals: NO,LOCAL PHYSICIAN (PCP/Family) Primary Care Physician SUKUMAR DURÁN DO Sep 03, 2021 04:38
[2021-09-03 04:43] LABS: ALBUMIN 4.1 GM/DL (3.2-4.5); CHLORIDE 103 MMOL/L (98-107); POTASSIUM 3.6 MMOL/L (3.6-5.0); SODIUM 139 MMOL/L (135-145)
[2021-09-03 04:44] LABS: AMYLASE 61 U/L (25-125)
[2021-09-03 04:45] LABS: CALCIUM 8.9 MG/DL (8.5-10.1)
[2021-09-03] MEDS ORDERED: NS IV 1000 ML 1,000 ML IV SCH ×2 (04:45→05:45)
[2021-09-03 04:46] LABS: GLUCOSE 125 MG/DL (70-105)
[2021-09-03 04:47] LABS: CARBON DIOXIDE 22 MMOL/L (21-32)
[2021-09-03 04:48] LABS: BILIRUBIN,TOTAL 0.3 MG/DL (0.1-1.0)
[2021-09-03 04:49] LABS: ALKALINE PHOSPHATASE 69 U/L (40-136); CREATININE SERUM 1.02 MG/DL (0.60-1.30); GFR ESTIMATED 95
[2021-09-03 04:50] LABS: BUN/CREATININE RATIO 13
[2021-09-03 04:52] LABS: ALANINE AMINOTRANSFERASE 15 U/L (0-55); MAGNESIUM 1.8 MG/DL (1.6-2.4)
[2021-09-03 04:53] LABS: CREATINE KINASE 121 U/L (30-200); LIPASE 17 U/L (8-78)
[2021-09-03 05:00] LABS: CREATINE KINASE MB 1.5 NG/ML (<6.6)
[2021-09-03] MEDS ORDERED: MIDAZOLAM 5 MG/5 ML (VERSED) VIAL ONE (05:06)
[2021-09-03] MEDS ORDERED: fentaNYL INJ 100 MCG/2 ML AMP ONE (05:06)
[2021-09-03] MEDS ORDERED: LIDOCAINE 2% 20 ML (XYLOCAINE) VIAL ONE (05:07)
[2021-09-03] MEDS ORDERED: NITRO DRIP 25000 MCG/D5W 0 ML IV ONE (05:07)
[2021-09-03] MEDS ORDERED: NS IV 1000 ML 0 ML ONE (05:07)
[2021-09-03] MEDS ORDERED: HEParin 1000 UNIT/ML (10ML VIAL) FOR BOLUS ONE (05:07)
[2021-09-03] MEDS ORDERED: HEParin (CATH LAB) 2,000 ML IV ONE (05:08)
--- NOTE | 2021-09-03 05:11 | Cardiology History & Physical ---
HPI-Cardiology Cardiology Consultation Date of Consultation 09/03/21 Date of Admission Time Seen by Provider: 05:11 Indication: Chest pain HPI 41 years old gentleman with no significant past medical history, strong family history of heart disease, started to have chest pain yesterday morning initially the pain relieved and came back last night with dull achiness in the retroster nal area associated with shortness of breath and diaphoresis, EKG has minimal ST elevation in lead V2. Chest pain relieved by nitroglycerin. On my evaluation he was still having mild discomfort in his chest. We decided to proceed with cardiac catheterization PMH-Cardiology Seasonal Allergies Seasonal Allergies: No Surgeries Yes (CORRECTION OF TESTICULAR TORSION) Respiratory No Cardiovascular No Neurological No Genitourinary Yes (TESTICULAR TORSION WITH CORRECTIVE SURGERY) Gastrointestinal No Musculoskeletal No Endocrine No HEENT No Cancer No Psychosocial No Integumentary No Blood Transfusions No Social History Patient Social History Marrital Status: Smoking: Current every day smoker Have you traveled recently?: No Alcohol Use?: Yes Family Hx Other Strong family history of heart disease with multiple heart members with heart attack at age 40 ROS-Cardiology Review of Systems General: No Chills, No Night Sweats, No Fatigue, No Malaise, No Appetite HEENT: No Head Aches, No Visual Changes, No Eye Pain, No Ear Pain, No Dysphasia, No Sinus Congestion, No Post Nasal Drip, No Sore Throat Pulmonary: Dyspnea; No Cough, No Pleuritic Chest Pain Cardiovascular: Chest Pain; No: Palpitations, Orthopnea, Paroxysmal Noc. Dyspnea, Edema, Lt Headedness Gastrointestinal: No: Nausea, Vomiting, Abdominal Pain, Diarrhea, Constipation, Melena, Hematochezia Genitourinary: No Dysuria, No Frequency, No Incontinence, No Hematuria, No Retention Musculoskeletal: No: neck pain, shoulder pain, arm pain, back pain, hand pain, leg pain, foot pain Neurological: No: Weakness, Numbness, Incoordination, Change in speech, Confus ion, Seizures Home Medications & Allergies Allergies: Coded Allergies: No Known Drug Allergies (Unverified , 01/10/10) Home Medication List Reviewed: Yes Exam-Cardiology Vital Signs Vital Signs Date Time Temp Pulse Resp B/P (MAP) Pulse Ox O2 Delivery O2 Flow Rate FiO2 09/03/21 04:19 97 Room Air 09/03/21 04:19 36.8 84 18 133/93 (106) Exam General Appearance: Alert, Oriented X3, Cooperative, No Acute Distress HEENT: Atraumatic, PERRLA Respiratory: Clear to Auscultation, Normal Air Movement Cardiovascular: Regular Rate, Normal S1, Normal S2, No Murmurs Abdominal: Normal Bowel Sounds, Soft, No Tenderness, No Hepatosplenomegaly, No Masses Extremities: No Clubbing, No Cyanosis, No Edema, Normal Pulses, No Tenderness/Swelling Skin: No Rashes, No Breakdown, No Significant Lesion Neuro: Normal Gait, Normal Speech, Strength at 5/5 X4 Ext, Normal Tone, Sensation Intact Psych/Mental Status: Mental Status NL, Mood NL Results Labs Labs Laboratory Tests 09/03/21 04:25: White Blood Count 16.0H, Red Blood Count 4.60, Hemoglobin 14.6, Hematocrit 43, Mean Corpuscular Volume 93, Mean Corpuscular Hemoglobin 32, Mean Corpuscular Hemoglobin Concent 34, Red Cell Distribution Width 11.9, Platelet Count 291, Mean Platelet Volume 10.5, Immature Granulocyte % (Auto) 0, Neutrophils (%) (Auto) 66, Lymphocytes (%) (Auto) 23, Monocytes (%) (Auto) 7, Eosinophils (%) (Auto) 3, Basophils (%) (Auto) 1, Neutrophils # (Auto) 10.6H, Lymphocytes # (Auto) 3.7, Monocytes # (Auto) 1.2H, Eosinophils # (Auto) 0.4H, Basophils # (Auto) 0.1, Immature Granulocyte # (Auto) 0.1, Neutrophils % (Manual) 68, Lymphocytes % (Manual) 20, Monocytes % (Manual) 8, Eosinophils % (Manual) 4, Blood Morphology Comment NORMAL, Prothrombin Time 12.7, INR Comment 0.9, Activated Partial Thromboplast Time 29, D-Dimer 0.20, Sodium Level 139, Potassium Level 3.6, Chloride Level 103, Carbon Dioxide Level 22, Anion Gap 14, Blood Urea Nitrogen 13, Creatinine 1.02, Estimat Glomerular Filtration Rate 95, BUN/Creatinine Ratio 13, Glucose Level 125H, Calcium Level 8.9, Corrected Calcium 8.8, Magnesium Level 1.8, Total Bilirubin 0.3, Aspartate Amino Transf (AST/SGOT) 16, Alanine Aminotransferase (ALT/SGPT) 15, Alkaline Phosphatase 69, Total Creatine Kinase 121, Creatine Kinase MB 1.5, Myoglobin 33.4, Troponin I < 0.028, B-Type Natriuretic Peptide < 10.0, Total Protein 7.0, Albumin 4.1, Amylase Level 61, Lipase 17 A/P-Cardiology Admission Diagnosis Chest pain Tobaccoism Family history of atherosclerosis Admission Status: Observation Assessment/Plan Chest pain, patient had minimal ST elevation in lead V2. Patient has strong family history of heart disease. Chest pain is relieving by nitroglycerin, no full relief, recurrent chest pain. Decided to proceed with emergency cardiac catheterization which was carried out on September 03, 2021 showing normal coronaries with no significant obstructive disease. Normal left ventricular size and function, ejection fraction 60% Tobaccoism educated on avoiding any tobacco products Strong family history of heart disease with multiple family members with heart attack at age 40 Clinical Quality Measures AMI/AHF: ASA po Prior to arrival: LIAT Monahan MD Sep 03, 2021 05:11
--- NOTE | 2021-09-03 05:12 | Conscious Sedation/ASA ---
Conscious Sedation Pre-Proced Time 05:12 ASA Score 3 For ASA 3 and 4: Consider anesthesia and medical clearance. Also, for patients with a history of failed moderate sedation consider anesthesia. Airway Lungs Heart ASA score ASA 1: a normal healthy patient ASA 2: a patient with a mild systemic disease (mid diabetes, controlled hypertension, obesity x ASA 3: a patient with a severe systemic disease that limits activity (angina, COPD, prior Myocardial infarction) ASA 4: a patient with an incapacitating disease that is a constant threat to life (CHF, renal failure) ASA 5: a moribund patient not expected to survive 24 hrs. (ruptured aneurysm) ASA 6: a declared brain- patient whose organs are being harvested. For emergent operations, add the letter E after the classification Mallampati Classification Grade 3 Sedation Plan Analgesia, Amnesia, Plan communicated to team members, Discussed options with patient/fam, Discussed risks with patient/fam The patient is an appropriate candidate to undergo the planned procedure, sedation, and anesthesia. The patient immediately re-assessed prior to indication. LIAT GA MD Sep 03, 2021 05:12
[2021-09-03 05:17] LABS: EOSINOPHILS % (MANUAL) 4 %; LYMPHOCYTES % (MANUAL) 20 %; MONOCYTES % (MANUAL) 8 %; NEUTROPHILS % (MANUAL) 68 %; RBC MORPH NORMAL
[2021-09-03 05:21] LABS: FIBRIN DEGRADATION PRODUCTS 0.2 UG/ML (0.00-0.49); INR 0.9 (0.8-1.4); PROTHROMBIN TIME PATIENT 12.7 SEC (12.2-14.7)
--- NOTE | 2021-09-03 05:42 | Cardiac Cath Report ---
Cardiac Cath Report Physician (s)/Window Trimmer Apprentice (s) Physician LIAT GA MD Pre-Procedure Diagnosis Pre-Procedure Diagnosis: Chest pain Post-Procedure Note Procedure Start Date: Sep 03, 2021 Name of Procedure: Left heart catheterization Findings/Procedure Note PROCEDURE NOTE: 41 years old gentleman with history of tobaccoism, strong family history of heart disease admitted with acute chest pain and EKG changes suggestive of a STEMI. After explaining the procedure to the patient, all pros and cons were explained, all questions were answered. The patient signed the consent and then he was placed on the cardiac catheterization laboratory. Groin was prepped SL fashion local anesthesia was used. Sheath placed in the right femoral artery. Mitzy right and left catheter were used to access the coronary system. Pigtail was used to access the left ventricular cavity. Left ventriculogram was done At the end of the procedure the sheath was removed. Closure device was used FINDINGS: Hemodynamics LV 113/19, end-diastolic pressure of 19 Aorta 130/80 mean of 101 ANATOMY: Left Main is free of obstructive disease Left Anterior Descending is free of obstructive Left Circumflex is free of obstructive disease Right Coronary Artery is free of obstructive disease LV Gram was done showing normal left ventricular size and systolic function estimate ejection fraction 60% CONCLUSION: 1. No significant coronary artery disease 2. Normal left ventricular end-diastolic pressure, normal systolic function, EF 60% DISCUSSION AND RECOMMENDATION: Chest pain is probably noncardiac. Anesthesia Type: Conscious Sedation Estimated blood loss (mL): 15 ml Contrast Amount: 40 ml Total Radiation Dose: 275 mGy Post-Procedure Diagnosis Post-operative diagnosis: Chest pain Tobaccoism Family history of atherosclerosis LIAT GA MD Sep 03, 2021 05:42
[2021-09-03] MEDS ORDERED: PATIENT MAY USE OWN MEDS, ALL PO SCH (05:45)
[2021-09-03] MEDS ORDERED: PANT40SU PO (05:50)
--- NOTE | 2021-09-03 05:50 | Discharge Inst-Post CATH ---
Discharge Inst-CATH/EP Problems Reviewed?: Yes Post Cardiac Cath/EP D/C Inst Follow Up/Plan Appointment with Dr. Baires's office in 2 to 4 weeks <b>CARDIAC CATH/EP PROCEDURE DISCHARGE INSTRUCTIONS</b> ACTIVITY * Go Home directly and rest. * Limit activity of the leg (or wrist if it was used) for 7 days including aer obics, swimming, jogging, bicycling, etc. * Restrict stair-climbing for 7 days if possible, if not, climb up with your non-cath leg, then bring together on the same step. * Avoid lifting, pushing, pulling or excessive movement of the affected extremi ty for 7 days. * Customary sexual activity may be resumed after 2 days-use caution not to use a position that strains or causes pain to the affected extremity. * No driving for 24 hours. * NO SMOKING. * Avoid straining for bowel movements for 7 days. * Gentle walking on level ground is allowed. * Returning to work will depend on the type of procedure and the results. Your doctor will discuss this with you. CALL YOUR DOCTOR FOR ANY OF THE FOLLOWING: *If bleeding from the puncture site occurs- Apply gentle pressure to site with clean cloth and call your doctor or EMS. * If a knot or lump forms under the skin, increases in size, or causes pain. * If bruising appears to be worsening or moving further down your leg instead of disappearing. * Temperature above 101 F. CARE OF YOUR GROIN INCISION; * Bruising or purple discoloration of the skin near the puncture site is common. * You may shower only, no bathtub bathing for 5 days. Be careful to avoid slipping as your leg may feel stiff. * If a closure device was used on your femoral artery, please see the attached guide regarding care of the device and your leg. * Leave dressing on FOR 24 hours. CARE OF YOUR WRIST INCISION; * Bruising or purple discoloration of the skin near the puncture site is common. * You may shower. * DO NOT submerge wrist. * Leave dressing on FOR 24 hours. LIAT BAIRES MD Sep 03, 2021 05:50
[2021-09-03 06:00] VITALS: BP 137/87
--- NOTE | 2021-09-03 06:20 | Tele-ICU Consult ---
History of Present Illness History of Present Illness Date Seen by Provider: Sep 03, 2021 Time Seen by Provider: 06:00 Date of Admission 09/03/21 Reason for Visit: Chest pain History of Present Illness TELEMEDICINE VISIT 41 yo male with reported strong family hx of CAD presented with chest pain assoc w dyspnea and diaphoresis. EKG with minimal ST elevation V2. Chest pain relieved by NTG but persisted. PMHx Smoker Pt comfortable on video, NAD Trop < 0.028, BNP < 10 Cath with normal coronaries Pt was given aspirin. Now started on pantoprazole. Allergies and Home Medications Allergies Coded Allergies: No Known Drug Allergies (Unverified , 01/10/10) Home Medications Docusate Sodium 100 Mg Cap, 100 MG PO BID Prescribed by: SYDNEY CHAMBERLAIN on 11/23/14 1323 Naproxen 500 Mg Tablet, 1 EACH PO BID PRN for PAIN FOR PAIN Prescribed by: SYDNEY CHAMBERLAIN on 11/23/14 1323 Pantoprazole Sodium 40 Mg Granpkt.dr, 40 MG PO DAILY Prescribed by: LIAT GA on 09/03/21 0550 Past Medical/Social/Family Hx Patient Social History Marrital Status: Tobacco Use?: Yes (SMOKED 1PPD, NOW VAPES) Tobacco type used: Cigarettes Smoking Status: Current Everyday Smoker Use of E-Cig and/or Vaping dev: Yes E-Cig or Vaping type used: Nicotine E-Cig and/or Vaping Freq: Current Everyday User Substance use?: No EXPERIMENTED A TEEN Alcohol Use?: Yes Alcohol Frequency: Once in a while Pt stated abuse/neglect: No Immunizations Up To Date Influenza Vaccine Up-to-Date: No; Not Current Current Status Advance Directives: No Communicates: Verbally Primary Language: Tanzanian Preferred Spoken Language: Tanzanian Is interpretation needed?: No Implanted or Applied Medical D: None Past Medical History Smoker Review of Systems Constitutional: no symptoms reported Focused Exam Sepsis Stage: Ruled Out Height, Weight, BMI Height: 5'10" Weight: 200lbs. oz. 90.699160zb; 25.00 BMI Method:Stated Respiratory: No Accessory Muscle Use, No Respiratory Distress Cardiovascular: Regular Rate, Rhythm Skin: normal color, warm/dry Exam Exam Patient acknowledged, consented, and participated in this virtual visit which was conducted using real time audio/video Vital Signs Date Time Temp Pulse Resp B/P (MAP) Pulse Ox O2 Delivery O2 Flow Rate FiO2 09/03/21 06:05 86 09/03/21 06:00 92 18 137/87 (104) 96 Room Air 09/03/21 04:19 97 Room Air 09/03/21 04:19 36.8 84 18 133/93 (106) 97 Room Air I & O 09/03/21 06:59 Intake Total 1000 ml Balance 1000 ml Height & Weight Height: 5'10" Weight: 200lbs. oz. 90.440639nm; 25.00 BMI Method:Stated General Appearance: No Apparent Distress, WD/WN, Other (SOMEWHAT LETHARGIC, LOOKS UNCOMFORTABLE, PALE AND MILDY DIAPHORETIC) Neck: Normal Inspection Respiratory: Chest Non Tender, Normal Breath Sounds, No Accessory Muscle Use, No Respiratory Distress Cardiovascular: Regular Rate, Rhythm, No Edema, No JVD, No Murmur, Normal Peripheral Pulses Capillary Refill: Less Than 3 Seconds Extremity: Normal Capillary Refill, Normal Inspection, Normal Range of Motion, Non Tender, No Calf Tenderness, No Pedal Edema Neurologic/Psychiatric: Alert, Oriented x3, No Motor/Sensory Deficits, dermatologist managing partner II- XII Norm as Tested Skin: Diaphoresis, Pallor Results Lab Laboratory Tests 09/03/21 04:25 Assessment/Plan Assessment/Plan Further management per smelter charger. Pt now on protonix Critical Care: Critically Ill Patient Time spent with patient (mins): 25, TELEMEDICINE VISIT Advance Care Discussion: initiate discussion BURKE ARAGON MD Sep 03, 2021 06:20
--- NOTE | 2021-09-03 06:54 | Diagnostic Imaging Report ---
EXAMINATION: Chest 1 view HISTORY: Chest pain. COMPARISON: 06/20/2016. FINDINGS: The lung volumes are normal. No focal consolidation is seen. Hazy opacities are seen in the perihilar regions. No large pleural effusion or pneumothorax is seen. The cardiomediastinal silhouette is normal in size and contour. No acute osseous abnormality is seen. IMPRESSION: 1. Hazy perihilar opacities, which can be seen with infection or edema. No focal consolidation or pleural effusions. Dictated by: Dictated on workstation # [id number]
[2021-09-03] MEDS ORDERED: PANTOPRAZOLE 40 MG (PROTONIX) TAB PO SCH (07:00)
[2021-09-03 07:24] VITALS: BP 126/80
[2021-09-03 08:00] VITALS: BP 136/91
[2021-09-03 09:00] VITALS: BP 140/90
== END 2021-09-03 10:10 | disposition home or self-care (01) ==
LOC: EDUNIT# 04:13 → ER 04:16 → ICU 05:37
PROVIDERS: ADMIT Internal Medicine Cardiovascular Disease; ATTEND Internal Medicine Cardiovascular Disease
DX: R07.9 Chest pain, unspecified (principal); I21.3 ST elevation (STEMI) myocardial infarction of unspecified site; F17.210 Nicotine dependence, cigarettes, uncomplicated; F17.290 Nicotine dependence, other tobacco product, uncomplicated; Z82.49 Family history of ischemic heart disease and other diseases of the circulatory system
CPT/HCPCS: 71045; 80053; 82150; 82550; 82553; 83690; 83735; 83874; 83880; 84484; 85007; 85027; 85379; 85610; 85730; 87636; 93005; 93041; 93458; 99285; C1760; C1894; 36415